=== PATIENT | female | born 1990 | race Caucasian/White ===

== ENCOUNTER 2023-04-19 05:06 | Inpatient (IN) ==
[2023-04-19] MEDS ORDERED: Buffered Lidocaine 1% SYRIN 1 ml INTRADERM ONE (11:44)
[2023-04-19] MEDS ORDERED: Lactated Ringers 1000 ml BAG 1,000 ML IV ONE (11:44)
[2023-04-19] MEDS ORDERED: Lidocaine 1% VIAL 10 MG/ML 30 ML VIAL INJ PRN (11:44)
[2023-04-19] MEDS ORDERED: Oxytocin in LR 20,000 MILLI.UNIT/1,000 ML BAG IV SCH (11:45)
[2023-04-19] MEDS ORDERED: Lactated Ringers 1000 ml BAG 1,000 ML IV SCH (12:00)
[2023-04-19] MEDS ORDERED: Calcium Carb (TUMS) 500 mg CHEW TAB PO PRN (13:55)
[2023-04-19] MEDS ORDERED: Ondansetron 4 mg VIAL 2 MG/ML 2 ml VIAL IV PRN (13:55)
[2023-04-19 14:14] LABS: ABS Eosinophils 0.2 10^3/uL (0.0-0.5); ABS Lymphocytes 1.4 10^3/uL (1.0-4.8); ABS Monocytes 0.4 10^3/uL (0.0-0.9); ABS Neutrophils 7.4 10^3/uL (1.5-7.6); Eosinophil % 1.9 %; Hematocrit 37.3 % (35-45); Hemoglobin 12.9 g/dL (11.5-14.3); Mean Corpuscular Hemoglobin 28.9 pg (27-33); Mean Corpuscular Hgb Conc 34.5 g/dL (31-36); Mean Corpuscular Volume 83.7 fL (80-97); Mean Platelet Volume 7.5 fL (7.5-11.2); Platelet Count 235 10^3/uL (150-450); Red Blood Count 4.46 10^6/uL (3.63-4.92); Red Cell Distribution Width 15.1 % (12-17); White Blood Count 9.4 10^3/uL (3.8-11.8)
[2023-04-19 17:11] LABS: Urine Benzodiazepine Screen None Detected (None Detect); Urine Cannabinoids Screen None Detected (None Detect); Urine Opiates Screen None Detected (None Detect)
[2023-04-20] MEDS ORDERED: Phenylephrine 40 mcg/mL 10mL (400mcg) SYRINGE IV PUSH PRN ×2 (00:26)
[2023-04-20] MEDS ORDERED: Lactated Ringers 1000 ml BAG 1,000 ML IV ONE (00:26)
[2023-04-20] MEDS ORDERED: Sodium Citrate/Citric Acid LIQ 15 ML UDC PO PRN (00:26)
[2023-04-20] MEDS ORDERED: OBEPIDURAL (200 ML) 200 ML EPIDURAL ONE (00:26)
[2023-04-20] MEDS ORDERED: Lidocaine 1.5% EPI 1:200,000 30 ML SDV ONE (00:26)
[2023-04-20] MEDS ORDERED: OBEPIDURAL (200 ML) 200 ML EPIDURAL SCH (01:00)
[2023-04-20] MEDS ORDERED: Lactated Ringers 1000 ml BAG 1,000 ML IV SCH (01:00)
[2023-04-20 04:32] LABS: Urine Appearance Cloudy; Urine Bilirubin Negative (Negative); Urine Blood Negative (Negative); Urine Color Yellow; Urine Glucose Negative (Negative); Urine Ketones Negative (Negative); Urine Nitrite Negative (Negative); Urine Protein Negative (Negative); Urine Specific Gravity 1.016 (1.002-1.030); Urine Urobilinogen Negative (Negative)
[2023-04-20] MEDS ORDERED: Witch Hazel PAD JAR TOPICAL PRN (11:53)
[2023-04-20] MEDS ORDERED: Glycerin ADULT 2.4 gm SUPP PR PRN (11:53)
[2023-04-20] MEDS ORDERED: Dibucaine 1% OINT 28.35 GM TUBE PR PRN (11:53)
[2023-04-20] MEDS ORDERED: Oxytocin in LR 20,000 MILLI.UNIT/1,000 ML BAG IV SCH (11:55)
[2023-04-21 08:15] LABS: ABS Basophils 0.1 10^3/uL (0.0-0.1); ABS Eosinophils 0.2 10^3/uL (0.0-0.5); ABS Lymphocytes 2.5 10^3/uL (1.0-4.8); ABS Monocytes 0.6 10^3/uL (0.0-0.9); ABS Neutrophils 6.3 10^3/uL (1.5-7.6); ABS Nucleated RBC 0.01 10^3/ul; Eosinophil % 2.4 %; Hematocrit 30.1 % (35-45); Hemoglobin 10.3 g/dL (11.5-14.3); Lymphocyte % 25.8 %; Mean Corpuscular Hemoglobin 28.9 pg (27-33); Mean Corpuscular Hgb Conc 34.3 g/dL (31-36); Mean Corpuscular Volume 84.2 fL (80-97); Mean Platelet Volume 7.5 fL (7.5-11.2); Nucleated Red Blood Cells % 0.1 %/100WBC (0.0-0.8); Platelet Count 193 10^3/uL (150-450); Red Blood Count 3.58 10^6/uL (3.63-4.92); Red Cell Distribution Width 15.2 % (12-17); White Blood Count 9.7 10^3/uL (3.8-11.8)
[2023-04-21 08:26] VITALS: BP 133/89
== END 2023-04-21 20:02 | disposition home or self-care (01) | DRG 807 ==
LOC: MCHOB 11:11
PROVIDERS: ADMIT Advanced Practice Midwife; ATTEND Midwife